=== PATIENT | male | born 1985 | race Caucasian/White ===

== ENCOUNTER → 2019-06-27 | Outpatient (CLI) | payer OTHER ==
[~2019-06-27] MED LIST: FLEXERIL 1010 MG/TAB PO; NORCO 325 MG-51 TAB PO
== END ==
LOC: COL.RAD 12:09
DX: Q76.49 Other congenital malformations of spine, not associated with scoliosis (principal); M54.42 Lumbago with sciatica, left side
CPT/HCPCS: A9585

== ENCOUNTER → 2019-07-10 | Outpatient (CLI) | payer OTHER ==
[~2019-07-10] VITALS: Ht 190.5 cm; Wt 126.4 kg
[~2019-07-10] MED LIST changes: +CELEXA40 MG PO; +DIOVAN HCT 25 M1 TA1 PO; +NORVASC 5MG5 MG/TAB PO
[2019-07-10 12:03] VITALS: BP 122/91; PULSE 87
[2019-07-10 12:45] VITALS: BP 124/86; PULSE 71
--- NOTE | 2019-07-10 13:10 | NUR ---
Pt able to walk across floor without difficulty. No change in pain. Pt into wheelchair and down to meet . Pt up and into car without difficulty.
== END ==
LOC: COL.RAD 11:43
DX: M48.061 Spinal stenosis, lumbar region without neurogenic claudication (principal); M51.16 Intervertebral disc disorders with radiculopathy, lumbar region
CPT/HCPCS: J3301